=== PATIENT | female | born 1995 | race Caucasian/White ===

== ENCOUNTER 2017-11-07 20:47 | Emergency (ER) | payer OTHER ==
[2017-11-07 21:58] LABS: ADD MAN DIFF? NO
[2017-11-07] MEDS: ACETAMINOPHEN 500 MG TAB PO (21:59)
[2017-11-07] MEDS: ONDANSETRON 4 MG INJ IV (21:59)
[2017-11-07] MEDS: morphine 4 MG/ML VIAL IV (21:59)
[2017-11-07] MEDS: SOD CHLORIDE 0.9% 1,000 ML IV (22:00)
[2017-11-07 22:07] LABS: ABNORMAL IP MESSAGE 1; BASOPHIL # 0.1 10^3/ul (0.0-0.1); BASOPHILS % 0.6 % (0.0-2.0); EOSINOPHILS # 0.6 10^3/ul (0.0-0.5); EOSINOPHILS % 5.7 % (0.0-7.0); HEMOGLOBIN 9.9 g/dl (12.0-16.0); LYMPHOCYTES # 1.6 10^3/ul (0.8-2.9); LYMPHOCYTES % 14.7 % (15.0-51.0); MEAN CORPUSCULAR HEMOGLOBIN 19.2 pg (29.0-33.0); MEAN CORPUSCULAR HGB CONC 28.3 g/dl (32.0-37.0); MEAN CORPUSCULAR VOLUME 67.8 fl (82.0-101.0); MEAN PLATELET VOLUME 11.4 fl (7.4-10.4); MONOCYTES % 9.5 % (0.0-11.0); NEUTROPHIL # 7.5 10^3/ul (1.6-7.5); NEUTROPHILS % 69.2 % (39.0-77.0); PLATELET COUNT 305 10^3/UL (140-415); RED BLOOD COUNT 5.16 10^6/ul (4.20-5.40); RED CELL DISTRIBUTION WIDTH 19.4 % (11.5-14.5)
[2017-11-07 22:07] LABS: WHITE BLOOD COUNT 10.8 10^3/ul (4.8-10.8)
[2017-11-07 22:14] LABS: POSITIVE DIFF @See below
[2017-11-07 22:20] LABS: ADD UMIC YES; UR ASCORBIC ACID NEGATIVE (NEGATIVE); UR BILIRUBIN (Dip) NEGATIVE (NEGATIVE); UR BLOOD (Dip) NEGATIVE (NEGATIVE); UR CLARITY CLEAR (CLEAR); UR COLOR COLORLESS (YELLOW); UR GLUCOSE (Dip) NEGATIVE (NEGATIVE); UR KETONES (Dip) NEGATIVE (NEGATIVE); UR LEUKOCYTE ESTERASE (Dip) TRACE Leu/ul (NEGATIVE); UR NITRITE (Dip) NEGATIVE (NEGATIVE); UR RBC 0 /HPF (0-5); UR SPECIFIC GRAVITY (Dip) 1.001 (1.003-1.030); UR TOTAL PROTEIN (Dip) NEGATIVE (NEGATIVE); UR UROBILINOGEN (Dip) NEGATIVE (NEGATIVE); UR WBC 1 /HPF (0-5)
[2017-11-07 22:22] LABS: ALANINE AMINOTRANSFERASE 67 IU/L (13-69); ALBUMIN 4.4 g/dl (3.3-4.9); ALBUMIN/GLOBULIN RATIO 1.22; ALKALINE PHOSPHATASE 92 IU/L (42-121); ANION GAP 15 (8-16); ASPARTATE AMINO TRANSFERASE 65 IU/L (15-46); BILIRUBIN,INDIRECT 0.2 mg/dl (0-1.1); BILIRUBIN,TOTAL 0.2 mg/dl (0.2-1.3); BLOOD UREA NITROGEN 5 mg/dl (7-20); CALCIUM 8.8 mg/dl (8.4-10.2); CARBON DIOXIDE 26 mmol/L (21-31); CHLORIDE 104 mmol/L (97-110); CREATININE 0.61 mg/dl (0.44-1.00); GLUCOSE 97 mg/dl (70-220); LIPASE 62 U/L (23-300); POTASSIUM 3.8 mmol/L (3.5-5.1); SODIUM 141 mmol/L (135-144)
[2017-11-08] MEDS: IOHEXOL 300MG/ML 150 ML BTL (00:15)
[2017-11-08] MEDS: SOD CHLORIDE 0.9% 100 ML (00:15)
[2017-11-08] MEDS: CEFTRIAXONE 1 GM/50 ML (PMX) 50 ML IVPB (01:27)
== END 2017-11-08 02:37 | disposition home or self-care (01) ==
LOC: FTE 11-08 02:37
DX: N30.00 Acute cystitis without hematuria (principal); R10.2 Pelvic and perineal pain
CPT/HCPCS: 36415; 74177; 76856; 80053; 81001; 81025; 83690; 85025; 87591; 96374; 96375; 99285-25

== ENCOUNTER 2018-03-10 08:17 | Emergency (ER) | payer OTHER ==
[2018-03-10] MEDS: FAMOTIDINE 20 MG TAB PO (08:58)
[2018-03-10] MEDS: morphine 2 MG INJ IV (08:58)
[2018-03-10] MEDS: ONDANSETRON 4 MG INJ IV (08:58)
[2018-03-10] MEDS: SOD CHLORIDE 0.9% 1,000 ML IV (08:58)
[2018-03-10 09:06] LABS: ADD MAN DIFF? NO
[2018-03-10 09:11] LABS: WHITE BLOOD COUNT 13.4 10^3/ul (4.8-10.8)
[2018-03-10 09:11] LABS: BASOPHILS % 0.3 % (0.0-2.0); EOSINOPHILS # 0.2 10^3/ul (0.0-0.5); EOSINOPHILS % 1.7 % (0.0-7.0); HEMATOCRIT 39.7 % (37.0-47.0); HEMOGLOBIN 11.5 g/dl (12.0-16.0); LYMPHOCYTES # 0.7 10^3/ul (0.8-2.9); LYMPHOCYTES % 5.5 % (15.0-51.0); MEAN CORPUSCULAR VOLUME 69.2 fl (82.0-101.0); MEAN PLATELET VOLUME 10.7 fl (7.4-10.4); MONOCYTE # 1.2 10^3/ul (0.3-0.9); MONOCYTES % 8.9 % (0.0-11.0); NEUTROPHIL # 11.2 10^3/ul (1.6-7.5); NEUTROPHILS % 83.2 % (39.0-77.0); PLATELET COUNT 330 10^3/UL (140-415); RED BLOOD COUNT 5.74 10^6/ul (4.20-5.40); RED CELL DISTRIBUTION WIDTH 20.3 % (11.5-14.5)
[2018-03-10 09:40] LABS: ALANINE AMINOTRANSFERASE 19 IU/L (13-69); ALBUMIN 3.9 g/dl (3.3-4.9); ALKALINE PHOSPHATASE 90 IU/L (42-121); ANION GAP 14 (8-16); ASPARTATE AMINO TRANSFERASE 28 IU/L (15-46); BILIRUBIN,INDIRECT 0.3 mg/dl (0-1.1); BILIRUBIN,TOTAL 0.3 mg/dl (0.2-1.3); BLOOD UREA NITROGEN 10 mg/dl (7-20); CALCIUM 9.7 mg/dl (8.4-10.2); CARBON DIOXIDE 28 mmol/L (21-31); CHLORIDE 105 mmol/L (97-110); CREATININE 0.61 mg/dl (0.44-1.00); GLUCOSE 97 mg/dl (70-220); LIPASE 80 U/L (23-300); POTASSIUM 4.5 mmol/L (3.5-5.1); SODIUM 142 mmol/L (135-144); TOTAL PROTEIN 7.8 g/dl (6.1-8.1)
[2018-03-10 10:14] LABS: URINE BLOOD (Dip) POC Negative (NEGATIVE); URINE GLUCOSE (Dip) POC Negative (NEGATIVE); URINE KETONES (Dip) POC Negative (NEGATIVE); URINE LEUKOCYTE EST (Dip) POC Negative (NEGATIVE); URINE NITRITE (Dip) POC Negative (NEGATIVE); URINE TOTAL PROTEIN POC Negative (NEGATIVE)
[2018-03-10 10:14] LABS: URINE PH (Dip) POC 7.5 (5.0-8.5)
[2018-03-10] MEDS: CIPROFLOXACIN 400MG/D5W 200 ML IVPB (10:29)
[2018-03-10] MEDS: SOD CHLORIDE 0.9% 500 ML IV (10:40)
== END 2018-03-10 11:51 | disposition home or self-care (01) ==
LOC: FTE 08:17
DX: K52.9 Noninfective gastroenteritis and colitis, unspecified (principal)
CPT/HCPCS: 36415; 74176; 80053; 81003; 83690; 84703; 85025; 96361; 96365; 96375; 99285-25

== ENCOUNTER 2018-12-24 20:25 | Emergency (ER) | payer OTHER ==
[2018-12-24 21:31] LABS: ADD MAN DIFF? NO
[2018-12-24 21:36] LABS: BASOPHIL # 0.1 10^3/ul (0.0-0.1); BASOPHILS % 0.5 % (0.0-2.0); EOSINOPHILS # 0.3 10^3/ul (0.0-0.5); EOSINOPHILS % 3.2 % (0.0-7.0); HEMATOCRIT 33.3 % (37.0-47.0); HEMOGLOBIN 9.8 g/dl (12.0-16.0); LYMPHOCYTES # 2.4 10^3/ul (0.8-2.9); LYMPHOCYTES % 25.1 % (15.0-51.0); MEAN CORPUSCULAR HEMOGLOBIN 20.1 pg (29.0-33.0); MEAN CORPUSCULAR HGB CONC 29.4 g/dl (32.0-37.0); MEAN CORPUSCULAR VOLUME 68.2 fl (82.0-101.0); MEAN PLATELET VOLUME 10.3 fl (7.4-10.4); MONOCYTE # 0.9 10^3/ul (0.3-0.9); MONOCYTES % 8.8 % (0.0-11.0); NEUTROPHILS % 62.1 % (39.0-77.0); PLATELET COUNT 282 10^3/UL (140-415); RED BLOOD COUNT 4.88 10^6/ul (4.20-5.40); RED CELL DISTRIBUTION WIDTH 18.6 % (11.5-14.5)
[2018-12-24 21:36] LABS: WHITE BLOOD COUNT 9.7 10^3/ul (4.8-10.8)
[2018-12-24 21:40] LABS: ADD UMIC YES; UR ASCORBIC ACID NEGATIVE (NEGATIVE); UR BACTERIA FEW /HPF (NONE SEEN); UR BILIRUBIN (Dip) NEGATIVE (NEGATIVE); UR BLOOD (Dip) NEGATIVE (NEGATIVE); UR CLARITY CLEAR (CLEAR); UR COLOR RED (YELLOW); UR GLUCOSE (Dip) NEGATIVE (NEGATIVE); UR KETONES (Dip) NEGATIVE (NEGATIVE); UR LEUKOCYTE ESTERASE (Dip) TRACE Leu/ul (NEGATIVE); UR NITRITE (Dip) NEGATIVE (NEGATIVE); UR RBC 0 /HPF (0-5); UR SPECIFIC GRAVITY (Dip) 1.003 (1.003-1.030); UR SQUAMOUS EPITHELIAL CELL FEW /HPF (FEW); UR TOTAL PROTEIN (Dip) NEGATIVE (NEGATIVE); UR UROBILINOGEN (Dip) NEGATIVE (NEGATIVE); UR WBC 5 /HPF (0-5)
[2018-12-24 21:57] LABS: ALANINE AMINOTRANSFERASE 23 IU/L (13-69); ALBUMIN 4.3 g/dl (3.3-4.9); ALBUMIN/GLOBULIN RATIO 1.22; ALKALINE PHOSPHATASE 93 IU/L (42-121); AMYLASE 92 U/L (11-123); ANION GAP 12 (5-13); ASPARTATE AMINO TRANSFERASE 28 IU/L (15-46); BILIRUBIN,INDIRECT 0.3 mg/dl (0-1.1); BILIRUBIN,TOTAL 0.3 mg/dl (0.2-1.3); BLOOD UREA NITROGEN 8 mg/dl (7-20); CALCIUM 9.5 mg/dl (8.4-10.2); CARBON DIOXIDE 23 mmol/L (21-31); CHLORIDE 108 mmol/L (97-110); CREATININE 0.54 mg/dl (0.44-1.00); Estimated GFR > 60 mL/min (>60); GLUCOSE 94 mg/dl (70-220); LIPASE 94 U/L (23-300); POTASSIUM 4.2 mmol/L (3.5-5.1); SODIUM 143 mmol/L (135-144); TOTAL PROTEIN 7.8 g/dl (6.1-8.1)
[2018-12-24] MEDS: ONDANSETRON (ODT) 4 MG TAB ODT (23:33)
[2018-12-24] MEDS: HYDROCODONE/APAP (5/325) TAB PO (23:33)
== END 2018-12-25 00:05 | disposition home or self-care (01) ==
LOC: FTE 12-25 00:05
DX: D64.9 Anemia, unspecified (principal); R10.2 Pelvic and perineal pain; F17.210 Nicotine dependence, cigarettes, uncomplicated
CPT/HCPCS: 36415; 76830; 76856; 80053; 81001; 81025; 82150; 83690; 85025; 87086; 99284-25